=== PATIENT | male | born 1935 | race Caucasian/White ===

== ENCOUNTER 2017-10-17 16:19 | Inpatient (IN) | payer OTHER ==
[~2017-10-17 16:19] MED LIST: ASPIRIN E.C. 8181 MG PO; GLUCOPHAGE500 MG/TAB PO; LOPRESSOR 225 MG/TAB PO; NORVASC 5MG5 MG/TAB PO; PRINIVIL10 MG PO
[2017-10-17] MEDS ORDERED: LASIX 20MG TABL20 MG PO (16:25)
[2017-10-17] MEDS ORDERED: MULTI VITAMINS1 TAB PO (16:25)
[2017-10-17] MEDS ORDERED: BEE POLLEN PO (16:26)
[2017-10-17] MEDS ORDERED: TOBRADEX EYE DRO5 ML OP (16:27)
[2017-10-17] MEDS ORDERED: PREDFORTE5ML OU (16:27)
[2017-10-17 17:05] LABS: BASO % 0.5 % (0.0-2.0); EOS # 0.4 (0.0-0.7); EOS % 5.7 % (0-4.0); GRAN # 5.7 (1.4-6.5); GRAN % 75.2 % (42.2-75.2); HEMATOCRIT 42.6 % (42.0-52.0); HEMOGLOBIN 14.7 g/dl (13.5-18.0); LYMPH # 0.9 (1.2-3.4); LYMPH % 12.4 % (20.0-51.0); MEAN CELL VOLUME 94 fl (80.0-100.0); MEAN CORPUSCULAR HEMOGLOBIN 33 pg (27.0-31.0); MEAN CORPUSCULAR HGB CONC 35 g/dl (33.0-37.0); MEAN PLATELET VOLUME 10.7 fl (7.4-10.4); MONO # 0.5 (0.1-0.6); MONO % 5.9 % (1.7-9.3); PLATELET COUNT 144 K/mm3 (130-400); RED BLOOD COUNT 4.53 M/mm3 (4.20-5.60); REDCELL DISTRIBUTION WIDTH-CV 12.2 % (11.5-14.5)
[2017-10-17 17:17] LABS: ALBUMIN 3.9 gm/dL (3.5-5.0); BILIRUBIN,TOTAL 1.7 mg/dL (0.0-1.0); CALCIUM 9.4 mg/dL (8.4-10.2); CREATININE, serum 0.92 mg/dL (0.66-1.25); POTASSIUM 3.9 mmol/L (3.4-5.0); TOTAL PROTEIN 6.9 gm/dL (6.4-8.2)
[2017-10-17 17:18] LABS: INR 1.1 (0.8-3.0); PROTHROMBIN TIME 13.3 SECONDS (9.7-12.8)
[2017-10-17 17:24] LABS: PRE ALBUMIN 22.5 mg/dL (17.6-36.0)
[2017-10-17 18:03] VITALS: BP 159/64; PULSE 55; TEMP 98.2
[2017-10-17 20:00] LABS: MUCOUS Present /lpf; PH 5 (5-8); SQUAMOUS EPITHELIAL 0-2 /hpf; URINE APPEARANCE Clear; URINE BACTERIA None Seen /hpf; URINE BILIRUBIN Negative (NEGATIVE); URINE BLOOD Negative (NEGATIVE); URINE COLOR Yellow; URINE GLUCOSE Negative (NEGATIVE); URINE KETONE Negative (NEGATIVE); URINE LEUKOCYTE ESTERASE Negative (NEGATIVE); URINE NITRATE Negative (NEGATIVE); URINE PROTEIN(semi-quant) Negative (NEGATIVE); URINE RBC None Seen /hpf; URINE UROBILINOGEN Negative (NEGATIVE)
[2017-10-17 20:07] LABS: COLLECTION METHOD CLEAN CATCH
[2017-10-17 22:21] VITALS: BP 138/75; PULSE 85; TEMP 98.7
[2017-10-18] VITALS (10 sets, daily range): BP systolic 144–173; BP diastolic 63–130; PULSE 53–66; TEMP 98.1–98.7
[2017-10-18 06:15] LABS: BASO # 0.1 (0.0-0.2); BASO % 0.8 % (0.0-2.0); EOS # 0.5 (0.0-0.7); GRAN # 4.4 (1.4-6.5); GRAN % 68.4 % (42.2-75.2); HEMOGLOBIN 14.1 g/dl (13.5-18.0); LYMPH % 15.5 % (20.0-51.0); MEAN CELL VOLUME 95 fl (80.0-100.0); MEAN CORPUSCULAR HEMOGLOBIN 33 pg (27.0-31.0); MEAN CORPUSCULAR HGB CONC 34 g/dl (33.0-37.0); MEAN PLATELET VOLUME 10.8 fl (7.4-10.4); MONO # 0.5 (0.1-0.6); PLATELET COUNT 149 K/mm3 (130-400); RED BLOOD COUNT 4.34 M/mm3 (4.20-5.60); REDCELL DISTRIBUTION WIDTH-CV 12.4 % (11.5-14.5)
[2017-10-18 06:34] LABS: CALCIUM 8.8 mg/dL (8.4-10.2); CREATININE, serum 1.02 mg/dL (0.66-1.25); POTASSIUM 3.6 mmol/L (3.4-5.0)
[2017-10-19 01:54] VITALS: BP 169/78; PULSE 65; TEMP 98.4
[2017-10-19 04:00] VITALS: BP 160/65; PULSE 55; TEMP 98.4
[2017-10-19 05:46] LABS: HEMATOCRIT 41.1 % (42.0-52.0); HEMOGLOBIN 14.1 g/dl (13.5-18.0)
[2017-10-19 08:12] VITALS: BP 170/67; PULSE 57; TEMP 98.8
[2017-10-19 14:08] VITALS: BP 140/57; PULSE 61; TEMP 97.6
[2017-10-19 22:04] VITALS: BP 157/66; PULSE 76; TEMP 98.3
[2017-10-20 05:23] VITALS: BP 167/73; PULSE 60; TEMP 99.5
[2017-10-20 07:43] LABS: BASO % 0.4 % (0.0-2.0); EOS # 0.5 (0.0-0.7); EOS % 5.5 % (0-4.0); GRAN # 6.4 (1.4-6.5); GRAN % 72.2 % (42.2-75.2); HEMATOCRIT 40.2 % (42.0-52.0); HEMOGLOBIN 13.9 g/dl (13.5-18.0); LYMPH # 1.1 (1.2-3.4); LYMPH % 12.6 % (20.0-51.0); MEAN CELL VOLUME 95 fl (80.0-100.0); MEAN CORPUSCULAR HEMOGLOBIN 33 pg (27.0-31.0); MEAN CORPUSCULAR HGB CONC 35 g/dl (33.0-37.0); MEAN PLATELET VOLUME 11.1 fl (7.4-10.4); MONO # 0.8 (0.1-0.6); PLATELET COUNT 161 K/mm3 (130-400); RED BLOOD COUNT 4.24 M/mm3 (4.20-5.60); REDCELL DISTRIBUTION WIDTH-CV 12.7 % (11.5-14.5)
[2017-10-20 08:02] LABS: CALCIUM 8.7 mg/dL (8.4-10.2); CREATININE, serum 0.91 mg/dL (0.66-1.25); POTASSIUM 3.7 mmol/L (3.4-5.0)
[2017-10-20 08:12] LABS: ERYTHROCYTE SEDIMENTATION RATE 16 mm/hr (0-30)
[2017-10-20 09:33] VITALS: BP 150/62; PULSE 83; TEMP 97.4
[2017-10-20 13:53] VITALS: BP 150/62; PULSE 83; TEMP 97.4
== END 2017-10-20 14:45 | disposition swing bed (61) | DRG 481 ==
LOC: SURG 16:19
PROVIDERS: Orthopaedic Surgery; Physician Assistant
PROC: 0QS636Z Reposition Right Upper Femur with Intramedullary Internal Fixation Device, Percutaneous Approach (ICD-10-PCS; principal; 2017-10-18 16:00)
DX: S72.011A Unspecified intracapsular fracture of right femur, initial encounter for closed fracture (principal); I50.22 Chronic systolic (congestive) heart failure; Z66 Do not resuscitate; W18.30XA Fall on same level, unspecified, initial encounter; F03.90 Unspecified dementia, unspecified severity, without behavioral disturbance, psychotic disturbance, mood disturbance, and anxiety; E11.9 Type 2 diabetes mellitus without complications; I25.10 Atherosclerotic heart disease of native coronary artery without angina pectoris; Z95.1 Presence of aortocoronary bypass graft; K58.0 Irritable bowel syndrome with diarrhea; I11.0 Hypertensive heart disease with heart failure
CPT/HCPCS: 99222-AI; 99231-AI; 99232-AI; 99239; A9284; C1713; J0360; J0690; J1815; J2270; J2704; J3010; J7030

== ENCOUNTER → 2017-11-01 | Outpatient (REF) ==
[~2017-11-01] MED LIST changes: +BEE POLLEN PO; +LASIX 20MG TABL20 MG PO; +MULTI VITAMINS1 TAB PO; +PREDFORTE5ML OU; +TOBRADEX EYE DRO5 ML OP
== END ==
LOC: ZLAB.WCH 08:33
DX: Z01.89 Encounter for other specified special examinations (principal)

== ENCOUNTER → 2018-10-25 | Outpatient (REF) ==
[~2018-10-25] MED LIST changes: +ACTOS30 MG PO; +ASPI325T6 PO; +COLACE 100100 MG/CAP PO; +DESYREL 100MG100 MG PO; +DULCOLAX S10 MG/SUPP RC; +FLOMAX 0.40.4 MG/CAP PO; +IMODIUM A-D2 MG PO; +PREDNISONE10 MG PO; +SEROQUEL 2525 MG/TAB PO; +SEROQUEL50 MG PO; +TYLENOL 325MG325 MG PO; +ULTRAM 50MG TAB50 MG PO
== END ==
LOC: ZLAB.WCH 15:42
DX: Z01.89 Encounter for other specified special examinations (principal)

== ENCOUNTER → 2018-11-04 | Outpatient (REF) | LOC: ZLAB.WCH 16:52 | DX: Z01.89 Encounter for other specified special examinations (principal) ==